=== PATIENT | female | born 1960 | race Caucasian/White ===

== ENCOUNTER → 2020-12-02 | Outpatient (CLI) | payer OTHER ==
[~2020-12-02] MED LIST: ADULT LOW DOSE81 MG PO; ASPERDRINK81 MG PO; BYSTOLIC 5 MG5 M1 PO; CELEXA10 MG PO; CIPRO500 MG PO; FLAGYL500 MG PO; WELLBUTRIN XL300 MG PO
== END ==
LOC: SJCVCIMAG 07:40
PROVIDERS: ATTEND Internal Medicine Cardiovascular Disease
DX: I34.0 Nonrheumatic mitral (valve) insufficiency (principal); I10 Essential (primary) hypertension; Z95.0 Presence of cardiac pacemaker

== ENCOUNTER → 2021-04-06 | Outpatient (CLI) | payer OTHER ==
[~2021-04-06] VITALS: Ht 167.6 cm; Wt 90.9 kg
[~2021-04-06] MED LIST changes: +HYDROCHLOROTH12.5 M2 PO; +TOPROL XL50 MG PO
[2021-04-06 10:56] LABS: ABSOLUTE NEUTROPHILS 3.4 thou/uL (1.4-8.2); EOSINOPHILS 6.6 % (0.0-3.0); HEMATOCRIT 45.5 % (37.0-47.0); HEMOGLOBIN 15.2 gm/dL (12.0-15.0); LYMPHOCYTES 31.3 % (24.0-44.0); MCH 30.1 pg (26.0-34.0); MCHC 33.4 g/dL (28.0-37.0); MCV 90.1 fL (80.0-100.0); MONOCYTES 6.4 % (1.0-8.0); PLATELET COUNT 240 thou/uL (150-400); POLYS 54.7 % (36.0-66.0); RBC 5.05 mil/uL (4.20-5.00); WBC 6.2 thou/uL (4.0-11.0)
[2021-04-06 11:02] VITALS: BP 142/78
[2021-04-06 11:04] LABS: CALCIUM 9.7 mg/dL (8.5-10.1); CREATININE 0.8 mg/dL (0.6-1.0); POTASSIUM 3.8 mmol/L (3.5-5.1)
[2021-04-06 11:10] LABS: APTT 27.9 Seconds (24.5-32.8); INR 0.97; PROTIME 10.6 Seconds (10.5-12.1); TOTAL BILIRUBIN 0.6 mg/dL (0.2-1.0); TOTAL PROTEIN 7.4 g/dL (6.4-8.2)
--- NOTE | 2021-04-15 13:02 | P ---
[facility] [place] [address] PROCEDURE REPORT Name: MELISSA PERALTA Room #: REG [facility]#: [id number] Admission: 04/06/21 Attend Phys: Rashid Mtz MD Discharge: Date of : 62 Report #: [id number] THIS REPORT FOR: cc: Linda Lee MD, Cora A. MD Couchonnal, Luis F. MD ~ DATE OF SERVICE: 04/06/2021 PROCEDURE: Pacemaker generator exchange. PREOPERATIVE DIAGNOSIS: Pacemaker elective replacement indication. POSTOPERATIVE DIAGNOSIS: Pacemaker elective replacement indication. ANESTHESIA: The patient underwent MAC anesthesia with no anesthesia related complications. DESCRIPTION OF PROCEDURE: The patient underwent informed consent. We discussed the details of the procedure including the risks, which include but not limited to bleeding, infection, need for possible lead revisions. She understood these risks and was willing to proceed. She was brought to the EP laboratory in fasting and sedated state, prepped and draped in a standard fashion, received IV antibiotics prior to initiation of the procedure. Next, I injected lidocaine at the prior incision site. Incision was made. Cardiac pocket was entered, device disconnected. Leads tested and found to be functioning normally. Device connected, tug test performed. Pocket was irrigated with vancomycin. Pocket closed in 2 layers. Surgical glue was placed to outer skin layer. The patient awoke neurologically and hemodynamically intact. No complications. No significant bleeding. Explanted device was a [employer], model #ADDR01, serial #[id number], implanted on 07/24/2008. The newly implanted device was [employer], model #W3DR01, serial #[id number]. Both leads were originally implanted back on 07/24/2008. Atrial lead was a 5076, serial #[id number]. RV lead was a 4076, serial #[id number]. This is the correct serial number. The atrial lead demonstrated P-wave 1.2 millivolts, pacing impedance 456 ohms, pacing threshold 0.5 volts at 0.4 milliseconds. RV lead demonstrated R waves of 5.1 millivolts, pacing impedance of 437 ohms, pacing threshold of 0.75 volts at 0.4 milliseconds. The device was programmed AAIR/DDDR 60/130 mode. CONCLUSION: Successful dual-chamber pacemaker generator exchange. <ELECTRONICALLY SIGNED> By: Rashid Mtz MD 04/15/21 1302 [id number] Rashid Mtz MD /nt
== END | disposition home or self-care (01) ==
LOC: CATH 09:09
PROVIDERS: ATTEND Internal Medicine Cardiovascular Disease
DX: Z45.010 Encounter for checking and testing of cardiac pacemaker pulse generator [battery] (principal); I44.2 Atrioventricular block, complete; K21.9 Gastro-esophageal reflux disease without esophagitis; Z98.890 Other specified postprocedural states; Z79.899 Other long term (current) drug therapy; Z87.442 Personal history of urinary calculi; Z82.49 Family history of ischemic heart disease and other diseases of the circulatory system; Z79.82 Long term (current) use of aspirin; Z20.822 Contact with and (suspected) exposure to COVID-19
CPT/HCPCS: 62110; 62900; 70005